=== PATIENT | female | born 1970 | race Caucasian/White ===

== ENCOUNTER 2023-04-21 14:28 | Outpatient (CLI) | payer BC, SELFPAY ==
[2023-04-21 14:06] LABS: Abs Immature Grans 0.02 10^3/uL (0.0-0.06); Absolute Basophil Count 0.07 10^3/uL (0.0-0.2); Absolute Eosinophil Count 0.07 10^3/uL (0.0-0.7); Absolute Lymphocyte Count 1.55 10^3/uL (1.2-3.4); Absolute Monocyte Count 0.37 10^3/uL (0.1-0.8); Absolute Neutrophil Count 2.22 10^3/uL (1.2-6.7); Basophils % 1.6; Eosinophils % 1.6; HCT 29.1 % (36.0-46.0); HGB 9.8 g/dL (11.2-15.7); Immature Grans % 0.5; MCH 35.4 pg (27.0-33.0); MCHC 33.7 % (32.0-36.0); MCV 105 fL (80-95); MPV 10.6 fL (8.0-11.0); Monocytes % 8.6; Neutrophils % 51.7; Nucleated RBC 1.2 % (0.0-0.3); Platelet Count 426 10^3/uL (130-400); RBC 2.77 10^6/uL (3.93-5.22); RDW-SD 51.2 fL
[2023-04-21 14:21] LABS: ALT 28 U/L (14-59); AST 12 U/L (15-37); Albumin 4.2 g/dL (3.4-5.0); Alkaline Phosphatase 66 U/L (46-116); Anion Gap 9.3 mmol/L (3-11); BUN 15 mg/dL (7-18); Bilirubin, Total 0.6 mg/dL (0.2-1.0); CO2 27.7 mmol/L (21.0-32.0); CREATININE 0.8 mg/dL (0.55-1.02); Calcium 8.6 mg/dL (8.5-10.1); Chloride 102 mmol/L (98-107); Glucose 182 mg/dL (74-106); Potassium 3.8 mmol/L (3.5-5.1); Sodium 139 mmol/L (136-145); Total Protein 7.4 g/dL (6.4-8.2)
[2023-04-21 14:25] LABS: Diff Comment RBC Morph Reviewed
[2023-04-21 14:26] LABS: Macrocytosis 2+; Polychromasia Present
== END 2023-04-21 14:29 | disposition home or self-care (01) ==
LOC: LBO 14:31
PROVIDERS: Visit Provider Nurse Practitioner Adult Health
DX: D46.9 Myelodysplastic syndrome, unspecified (principal)
CPT/HCPCS: 36415; 80053; 85025

== ENCOUNTER 2023-06-09 10:25 | Outpatient (CLI) | payer BC, SELFPAY ==
[2023-06-09 10:25] LABS: Abs Immature Grans 0.05 10^3/uL (0.0-0.06); Absolute Basophil Count 0.08 10^3/uL (0.0-0.2); Absolute Eosinophil Count 0.08 10^3/uL (0.0-0.7); Absolute Lymphocyte Count 1.68 10^3/uL (1.2-3.4); Absolute Monocyte Count 0.36 10^3/uL (0.1-0.8); Absolute Neutrophil Count 2.66 10^3/uL (1.2-6.7); Basophils % 1.6; Eosinophils % 1.6; HCT 28.5 % (36.0-46.0); HGB 9.5 g/dL (11.2-15.7); Lymphocytes % 34.2; MCH 34.7 pg (27.0-33.0); MCHC 33.3 % (32.0-36.0); MCV 104 fL (80-95); Monocytes % 7.3; Neutrophils % 54.3; Platelet Count 424 10^3/uL (130-400); RBC 2.74 10^6/uL (3.93-5.22); RDW-SD 52.9 fL; WBC 4.91 10^3/uL (4.4-10.8)
[2023-06-09 10:42] LABS: ALT 30 U/L (14-59); AST 10 U/L (15-37); Albumin 4.1 g/dL (3.4-5.0); Alkaline Phosphatase 58 U/L (46-116); Anion Gap 8.1 mmol/L (3-11); BUN 20 mg/dL (7-18); Bilirubin, Total 0.5 mg/dL (0.2-1.0); CO2 27.9 mmol/L (21.0-32.0); CREATININE 0.7 mg/dL (0.55-1.02); Chloride 102 mmol/L (98-107); Estimated GFR 102.71 (mL/min/1.73m2); Glucose 102 mg/dL (74-106); Potassium 4.4 mmol/L (3.5-5.1); Sodium 138 mmol/L (136-145); Total Protein 7.4 g/dL (6.4-8.2)
[2023-06-11 12:50] LABS: Erythropoietin 110 mIU/mL (2.6 - 18.5)
== END 2023-06-09 10:26 | disposition home or self-care (01) ==
LOC: LBO 10:28
PROVIDERS: Visit Provider Internal Medicine Hematology & Oncology
DX: D46.9 Myelodysplastic syndrome, unspecified (principal); D64.9 Anemia, unspecified
CPT/HCPCS: 36415; 80053; 82668; 85025

== ENCOUNTER 2023-08-04 03:33 | Outpatient (CLI) | payer BC, SELFPAY ==
[2023-08-04 11:55] LABS: Abs Immature Grans 0.06 10^3/uL (0.0-0.06); Absolute Basophil Count 0.08 10^3/uL (0.0-0.2); Absolute Eosinophil Count 0.05 10^3/uL (0.0-0.7); Absolute Lymphocyte Count 1.75 10^3/uL (1.2-3.4); Absolute Monocyte Count 0.45 10^3/uL (0.1-0.8); Absolute Neutrophil Count 2.62 10^3/uL (1.2-6.7); Basophils % 1.6; HGB 9.1 g/dL (11.2-15.7); Immature Grans % 1.2; Lymphocytes % 34.9; MCH 34.3 pg (27.0-33.0); MCHC 32.5 % (32.0-36.0); MCV 106 fL (80-95); MPV 11.1 fL (8.0-11.0); Neutrophils % 52.3; Nucleated RBC 0.8 % (0.0-0.3); Platelet Count 439 10^3/uL (130-400); RBC 2.65 10^6/uL (3.93-5.22); RDW 16.2 % (11.7-14.6); RDW-SD 57.6 fL; WBC 5.01 10^3/uL (4.4-10.8)
[2023-08-04 12:12] LABS: Hypochromasia 1+; Macrocytosis 1+
[2023-08-04 12:17] LABS: ALT 23 U/L (14-59); AST 11 U/L (15-37); Albumin 4.1 g/dL (3.4-5.0); Alkaline Phosphatase 56 U/L (46-116); Anion Gap 6.2 mmol/L (3-11); BUN 20 mg/dL (7-18); Bilirubin, Total 0.4 mg/dL (0.2-1.0); CO2 28.8 mmol/L (21.0-32.0); CREATININE 0.6 mg/dL (0.55-1.02); Calcium 9.3 mg/dL (8.5-10.1); Chloride 103 mmol/L (98-107); Glucose 109 mg/dL (74-106); Potassium 4.4 mmol/L (3.5-5.1); Sodium 138 mmol/L (136-145); Total Protein 7.5 g/dL (6.4-8.2)
== END 2023-08-04 03:34 | disposition home or self-care (01) ==
LOC: LBO 03:33
PROVIDERS: Visit Provider Internal Medicine Hematology & Oncology
DX: D46.9 Myelodysplastic syndrome, unspecified (principal)
CPT/HCPCS: 36415; 80053; 85025

== ENCOUNTER 2023-08-25 02:07 | Outpatient (CLI) | payer BC, SELFPAY ==
[2023-08-25 09:02] LABS: Abs Immature Grans 0.02 10^3/uL (0.0-0.06); Absolute Basophil Count 0.07 10^3/uL (0.0-0.2); Absolute Eosinophil Count 0.09 10^3/uL (0.0-0.7); Absolute Lymphocyte Count 1.23 10^3/uL (1.2-3.4); Basophils % 1.6; HCT 26.4 % (36.0-46.0); HGB 8.7 g/dL (11.2-15.7); Immature Grans % 0.5; Lymphocytes % 27.9; MCH 34.8 pg (27.0-33.0); MCV 106 fL (80-95); MPV 11.5 fL (8.0-11.0); Monocytes % 6.8; Neutrophils % 61.2; Nucleated RBC 0.5 % (0.0-0.3); Platelet Count 356 10^3/uL (130-400); RDW-SD 58.3 fL; WBC 4.41 10^3/uL (4.4-10.8)
[2023-08-25 09:15] LABS: ALT 25 U/L (14-59); AST 10 U/L (15-37); Albumin 3.9 g/dL (3.4-5.0); Alkaline Phosphatase 65 U/L (46-116); Anion Gap 7.1 mmol/L (3-11); BUN 15 mg/dL (7-18); Bilirubin, Total 0.5 mg/dL (0.2-1.0); CO2 27.9 mmol/L (21.0-32.0); CREATININE 0.7 mg/dL (0.55-1.02); Calcium 9.2 mg/dL (8.5-10.1); Chloride 103 mmol/L (98-107); Estimated GFR 102.71 (mL/min/1.73m2); Glucose 145 mg/dL (74-106); Potassium 3.9 mmol/L (3.5-5.1); Sodium 138 mmol/L (136-145); Total Protein 7.3 g/dL (6.4-8.2)
== END 2023-08-25 02:08 | disposition home or self-care (01) ==
PROVIDERS: Visit Provider Nurse Practitioner Adult Health
DX: D46.9 Myelodysplastic syndrome, unspecified (principal)
CPT/HCPCS: 36415; 80053; 85025

== ENCOUNTER 2023-09-22 18:26 | Outpatient (CLI) | payer BC, SELFPAY ==
[2023-09-22 13:06] LABS: Abs Immature Grans 0.03 10^3/uL (0.0-0.06); Absolute Basophil Count 0.08 10^3/uL (0.0-0.2); Absolute Eosinophil Count 0.09 10^3/uL (0.0-0.7); Absolute Lymphocyte Count 1.75 10^3/uL (1.2-3.4); Absolute Monocyte Count 0.36 10^3/uL (0.1-0.8); Absolute Neutrophil Count 2.26 10^3/uL (1.2-6.7); Basophils % 1.8; HCT 26.2 % (36.0-46.0); HGB 8.6 g/dL (11.2-15.7); Immature Grans % 0.7; Lymphocytes % 38.3; MCH 35.4 pg (27.0-33.0); MCHC 32.8 % (32.0-36.0); MCV 108 fL (80-95); MPV 11.2 fL (8.0-11.0); Monocytes % 7.9; Neutrophils % 49.3; Nucleated RBC 0.4 % (0.0-0.3); Platelet Count 373 10^3/uL (130-400); RBC 2.43 10^6/uL (3.93-5.22); RDW 15.9 % (11.7-14.6); RDW-SD 59.4 fL; WBC 4.57 10^3/uL (4.4-10.8)
[2023-09-22 13:26] LABS: Diff Comment Diff Reviewed; Hypochromasia 2+; Macrocytosis 2+
[2023-09-22 13:27] LABS: Poikilocytes 2+
[2023-09-22 13:35] LABS: ALT 29 U/L (14-59); AST 11 U/L (15-37); Albumin 3.9 g/dL (3.4-5.0); Alkaline Phosphatase 54 U/L (46-116); Anion Gap 7.6 mmol/L (3-11); BUN 12 mg/dL (7-18); Bilirubin, Total 0.5 mg/dL (0.2-1.0); CO2 26.4 mmol/L (21.0-32.0); CREATININE 0.7 mg/dL (0.55-1.02); Calcium 8.6 mg/dL (8.5-10.1); Chloride 105 mmol/L (98-107); Estimated GFR 102.71 (mL/min/1.73m2); Glucose 95 mg/dL (74-106); Potassium 3.9 mmol/L (3.5-5.1); Sodium 139 mmol/L (136-145)
== END 2023-09-22 18:27 | disposition home or self-care (01) ==
LOC: LBO 18:27
PROVIDERS: Visit Provider Nurse Practitioner Adult Health
DX: D46.9 Myelodysplastic syndrome, unspecified (principal)
CPT/HCPCS: 36415; 80053; 85025

== ENCOUNTER 2023-10-13 18:42 | Outpatient (CLI) | payer BC, SELFPAY ==
[2023-10-13 13:32] LABS: Abs Immature Grans 0.02 10^3/uL (0.0-0.06); Absolute Basophil Count 0.08 10^3/uL (0.0-0.2); Absolute Eosinophil Count 0.09 10^3/uL (0.0-0.7); Absolute Lymphocyte Count 1.82 10^3/uL (1.2-3.4); Absolute Monocyte Count 0.36 10^3/uL (0.1-0.8); Absolute Neutrophil Count 2.01 10^3/uL (1.2-6.7); Basophils % 1.8; Eosinophils % 2.1; HGB 9.5 g/dL (11.2-15.7); Immature Grans % 0.5; Lymphocytes % 41.6; MCH 35.7 pg (27.0-33.0); MCHC 33.9 % (32.0-36.0); MCV 105 fL (80-95); MPV 11.5 fL (8.0-11.0); Monocytes % 8.2; Neutrophils % 45.8; Nucleated RBC 0.5 % (0.0-0.3); Platelet Count 349 10^3/uL (130-400); RBC 2.66 10^6/uL (3.93-5.22); RDW 15.3 % (11.7-14.6); RDW-SD 57.1 fL; WBC 4.38 10^3/uL (4.4-10.8)
[2023-10-13 13:48] LABS: ALT 27 U/L (14-59); AST 11 U/L (15-37); Albumin 4.1 g/dL (3.4-5.0); Alkaline Phosphatase 57 U/L (46-116); Anion Gap 5.9 mmol/L (3-11); BUN 13 mg/dL (7-18); Bilirubin, Total 0.7 mg/dL (0.2-1.0); CO2 29.1 mmol/L (21.0-32.0); CREATININE 0.8 mg/dL (0.55-1.02); Calcium 9.1 mg/dL (8.5-10.1); Chloride 104 mmol/L (98-107); Glucose 145 mg/dL (74-106); Potassium 3.9 mmol/L (3.5-5.1); Sodium 139 mmol/L (136-145); Total Protein 7.4 g/dL (6.4-8.2)
== END 2023-10-13 18:43 | disposition home or self-care (01) ==
LOC: LBO 18:45
PROVIDERS: Visit Provider Internal Medicine Hematology & Oncology
DX: D46.9 Myelodysplastic syndrome, unspecified (principal)
CPT/HCPCS: 36415; 80053; 85025

== ENCOUNTER 2023-10-27 02:36 | Outpatient (CLI) | payer BC, SELFPAY ==
[2023-10-27 12:30] LABS: Abs Immature Grans 0.02 10^3/uL (0.0-0.06); Absolute Basophil Count 0.08 10^3/uL (0.0-0.2); Absolute Lymphocyte Count 1.85 10^3/uL (1.2-3.4); Absolute Monocyte Count 0.43 10^3/uL (0.1-0.8); Absolute Neutrophil Count 1.65 10^3/uL (1.2-6.7); Basophils % 1.9; Eosinophils % 2.4; HCT 29.7 % (36.0-46.0); HGB 9.8 g/dL (11.2-15.7); Immature Grans % 0.5; Lymphocytes % 44.8; MCH 35.5 pg (27.0-33.0); Monocytes % 10.4; Platelet Count 383 10^3/uL (130-400); RBC 2.76 10^6/uL (3.93-5.22); RDW 15.6 % (11.7-14.6); RDW-SD 58.7 fL; WBC 4.13 10^3/uL (4.4-10.8)
[2023-10-27 12:44] LABS: MCV 108 fL (80-95)
[2023-10-27 12:55] LABS: ALT 29 U/L (14-59); AST 9 U/L (15-37); Albumin 4.3 g/dL (3.4-5.0); Alkaline Phosphatase 55 U/L (46-116); Anion Gap 5.6 mmol/L (3-11); BUN 18 mg/dL (7-18); Bilirubin, Total 0.3 mg/dL (0.2-1.0); CO2 29.4 mmol/L (21.0-32.0); CREATININE 0.7 mg/dL (0.55-1.02); Calcium 9.3 mg/dL (8.5-10.1); Chloride 103 mmol/L (98-107); Estimated GFR 102.71 (mL/min/1.73m2); Ferritin 561 ng/mL (8-252); Glucose 109 mg/dL (74-106); Potassium 4.6 mmol/L (3.5-5.1); Sodium 138 mmol/L (136-145); Total Protein 7.6 g/dL (6.4-8.2)
[2023-10-27 12:58] LABS: Iron 135 ug/dL (50-170); Total Iron Binding Capacity 325 ug/dL (250-450); Transferrin Sat 42 % (15-50)
== END 2023-10-27 02:37 | disposition home or self-care (01) ==
PROVIDERS: Visit Provider Internal Medicine Hematology & Oncology
DX: R79.89 Other specified abnormal findings of blood chemistry (principal); D64.9 Anemia, unspecified
CPT/HCPCS: 36415; 80053; 82728; 83540; 83550; 85025

== ENCOUNTER 2023-11-24 03:58 | Outpatient (CLI) | payer BC, SELFPAY ==
[2023-11-24 12:50] LABS: Abs Immature Grans 0.08 10^3/uL (0.0-0.06); Absolute Basophil Count 0.07 10^3/uL (0.0-0.2); Absolute Eosinophil Count 0.11 10^3/uL (0.0-0.7); Absolute Monocyte Count 0.32 10^3/uL (0.1-0.8); Absolute Neutrophil Count 5.14 10^3/uL (1.2-6.7); Basophils % 1.1; Eosinophils % 1.8; HCT 28.6 % (36.0-46.0); HGB 9.6 g/dL (11.2-15.7); Immature Grans % 1.3; MCH 36.2 pg (27.0-33.0); MCHC 33.6 % (32.0-36.0); MCV 108 fL (80-95); MPV 10.9 fL (8.0-11.0); Monocytes % 5.1; Neutrophils % 82.7; Nucleated RBC 0.5 % (0.0-0.3); Platelet Count 362 10^3/uL (130-400); RBC 2.65 10^6/uL (3.93-5.22); RDW 15.1 % (11.7-14.6); RDW-SD 57.4 fL; WBC 6.22 10^3/uL (4.4-10.8)
[2023-11-24 13:20] LABS: Iron 119 ug/dL (50-170); Total Iron Binding Capacity 289 ug/dL (250-450); Transferrin Sat 41 % (15-50)
[2023-11-24 13:21] LABS: ALT 32 U/L (14-59); AST 15 U/L (15-37); Alkaline Phosphatase 60 U/L (46-116); Anion Gap 10.2 mmol/L (3-11); BUN 10 mg/dL (7-18); Bilirubin, Total 0.4 mg/dL (0.2-1.0); CO2 26.8 mmol/L (21.0-32.0); CREATININE 0.7 mg/dL (0.55-1.02); Calcium 9.4 mg/dL (8.5-10.1); Chloride 106 mmol/L (98-107); Estimated GFR 102.71 (mL/min/1.73m2); Ferritin 554 ng/mL (8-252); Glucose 121 mg/dL (74-106); Sodium 143 mmol/L (136-145); Total Protein 7.2 g/dL (6.4-8.2)
== END 2023-11-24 03:59 | disposition home or self-care (01) ==
LOC: LBO 03:58
PROVIDERS: Visit Provider Internal Medicine Hematology & Oncology
DX: D46.9 Myelodysplastic syndrome, unspecified (principal); D64.9 Anemia, unspecified; R79.89 Other specified abnormal findings of blood chemistry
CPT/HCPCS: 36415; 80053; 82728; 83540; 83550; 85025

== ENCOUNTER 2023-12-08 03:22 | Outpatient (CLI) | payer BC, SELFPAY ==
[2023-12-08 12:43] LABS: Abs Immature Grans 0.04 10^3/uL (0.0-0.06); Absolute Basophil Count 0.04 10^3/uL (0.0-0.2); Absolute Eosinophil Count 0.08 10^3/uL (0.0-0.7); Absolute Lymphocyte Count 1.69 10^3/uL (1.2-3.4); Absolute Monocyte Count 0.39 10^3/uL (0.1-0.8); Absolute Neutrophil Count 1.51 10^3/uL (1.2-6.7); Basophils % 1.1; Eosinophils % 2.1; HCT 28.6 % (36.0-46.0); HGB 9.6 g/dL (11.2-15.7); Immature Grans % 1.1; Lymphocytes % 45.1; MCH 35.6 pg (27.0-33.0); MCHC 33.6 % (32.0-36.0); MCV 106 fL (80-95); MPV 11.5 fL (8.0-11.0); Monocytes % 10.4; Neutrophils % 40.2; Nucleated RBC 0.8 % (0.0-0.3); Platelet Count 433 10^3/uL (130-400); RDW 15.2 % (11.7-14.6); RDW-SD 55.6 fL; WBC 3.75 10^3/uL (4.4-10.8)
[2023-12-08 13:10] LABS: ALT 46 U/L (14-59); AST 15 U/L (15-37); Albumin 4.2 g/dL (3.4-5.0); Alkaline Phosphatase 58 U/L (46-116); Anion Gap 10.2 mmol/L (3-11); BUN 13 mg/dL (7-18); Bilirubin, Total 0.6 mg/dL (0.2-1.0); CO2 27.8 mmol/L (21.0-32.0); CREATININE 0.7 mg/dL (0.55-1.02); Calcium 9.2 mg/dL (8.5-10.1); Chloride 103 mmol/L (98-107); Estimated GFR 102.71 (mL/min/1.73m2); Ferritin 654 ng/mL (8-252); Glucose 99 mg/dL (74-106); Potassium 4.2 mmol/L (3.5-5.1); Sodium 141 mmol/L (136-145); Total Protein 7.6 g/dL (6.4-8.2)
[2023-12-08 14:02] LABS: Iron 191 ug/dL (50-170); Total Iron Binding Capacity 331 ug/dL (250-450); Transferrin Sat 58 % (15-50)
== END 2023-12-08 03:23 | disposition home or self-care (01) ==
LOC: LBO 03:23
PROVIDERS: Visit Provider Internal Medicine Hematology & Oncology
DX: D64.9 Anemia, unspecified (principal); D46.9 Myelodysplastic syndrome, unspecified; R79.89 Other specified abnormal findings of blood chemistry
CPT/HCPCS: 36415; 80053; 82728; 83540; 83550; 85025

== ENCOUNTER 2024-02-09 05:44 | Outpatient (CLI) | payer BC, SELFPAY ==
[2024-02-09 11:55] LABS: Abs Immature Grans 0.02 10^3/uL (0.0-0.06); Absolute Basophil Count 0.05 10^3/uL (0.0-0.2); Absolute Eosinophil Count 0.09 10^3/uL (0.0-0.7); Absolute Lymphocyte Count 0.81 10^3/uL (1.2-3.4); Absolute Monocyte Count 0.39 10^3/uL (0.1-0.8); Absolute Neutrophil Count 2.79 10^3/uL (1.2-6.7); Basophils % 1.2 %; Eosinophils % 2.2 %; HCT 28.7 % (36.0-46.0); HGB 9.5 g/dL (11.2-15.7); Immature Grans % 0.5 %; Lymphocytes % 19.5 %; MCH 36.1 pg (27.0-33.0); MCHC 33.1 % (32.0-36.0); MPV 11.1 fL (8.0-11.0); Monocytes % 9.4 %; Neutrophils % 67.2 %; Platelet Count 351 10^3/uL (130-400); RBC 2.63 10^6/uL (3.93-5.22); RDW 14.8 % (11.7-14.6); RDW-SD 56.8 fL; WBC 4.15 10^3/uL (4.4-10.8)
[2024-02-09 11:56] LABS: MCV 109 fL (80-95)
[2024-02-09 12:24] LABS: ALT 29 U/L (14-59); AST 11 U/L (15-37); Albumin 4.3 g/dL (3.4-5.0); Alkaline Phosphatase 64 U/L (46-116); Anion Gap 9.2 mmol/L (3-11); BUN 19 mg/dL (7-18); Bilirubin, Total 0.6 mg/dL (0.2-1.0); CO2 26.8 mmol/L (21.0-32.0); CREATININE 0.7 mg/dL (0.55-1.02); Calcium 8.6 mg/dL (8.5-10.1); Chloride 103 mmol/L (98-107); Estimated GFR 102.07 (mL/min/1.73m2); Ferritin 586 ng/mL (8-252); Glucose 126 mg/dL (74-106); Potassium 4.1 mmol/L (3.5-5.1); Sodium 139 mmol/L (136-145); Total Protein 7.4 g/dL (6.4-8.2)
[2024-02-09 12:26] LABS: Iron 128 ug/dL (50-170); Total Iron Binding Capacity 300 ug/dL (250-450); Transferrin Sat 43 % (15-50)
== END 2024-02-09 05:45 | disposition home or self-care (01) ==
LOC: LBO 05:45
PROVIDERS: Visit Provider Internal Medicine Hematology & Oncology
DX: R79.89 Other specified abnormal findings of blood chemistry (principal); D46.9 Myelodysplastic syndrome, unspecified
CPT/HCPCS: 36415; 80053; 82728; 83540; 83550; 85025

== ENCOUNTER 2024-03-08 14:57 | Outpatient (CLI) | payer BC, SELFPAY ==
[2024-03-08 12:22] LABS: Abs Immature Grans 0.01 10^3/uL (0.0-0.06); Absolute Basophil Count 0.05 10^3/uL (0.0-0.2); Absolute Eosinophil Count 0.09 10^3/uL (0.0-0.7); Absolute Lymphocyte Count 1.45 10^3/uL (1.2-3.4); Absolute Monocyte Count 0.26 10^3/uL (0.1-0.8); Absolute Neutrophil Count 1.16 10^3/uL (1.2-6.7); Basophils % 1.7 %; HCT 27.1 % (36.0-46.0); HGB 9.1 g/dL (11.2-15.7); Immature Grans % 0.3 %; MCH 36.1 pg (27.0-33.0); MCHC 33.6 % (32.0-36.0); MCV 108 fL (80-95); MPV 11.2 fL (8.0-11.0); Monocytes % 8.6 %; Neutrophils % 38.4 %; Nucleated RBC 0.7 % (0.0-0.3); Platelet Count 330 10^3/uL (130-400); RBC 2.52 10^6/uL (3.93-5.22); RDW 14.9 % (11.7-14.6); RDW-SD 56.3 fL; WBC 3.02 10^3/uL (4.4-10.8)
[2024-03-08 12:50] LABS: ALT 30 U/L (14-59); AST 10 U/L (15-37); Albumin 4.1 g/dL (3.4-5.0); Alkaline Phosphatase 57 U/L (46-116); Anion Gap 8.4 mmol/L (3-11); BUN 15 mg/dL (7-18); Bilirubin, Total 0.5 mg/dL (0.2-1.0); CO2 27.6 mmol/L (21.0-32.0); CREATININE 0.6 mg/dL (0.55-1.02); Calcium 8.8 mg/dL (8.5-10.1); Chloride 105 mmol/L (98-107); Estimated GFR 105.94 (mL/min/1.73m2); Ferritin 489 ng/mL (8-252); Glucose 100 mg/dL (74-106); Potassium 4.3 mmol/L (3.5-5.1); Sodium 141 mmol/L (136-145); Total Protein 7.2 g/dL (6.4-8.2)
[2024-03-08 13:38] LABS: Iron 148 ug/dL (50-170); Total Iron Binding Capacity 281 ug/dL (250-450); Transferrin Sat 53 % (15-50)
== END 2024-03-08 14:58 | disposition home or self-care (01) ==
LOC: LBO 15:01
PROVIDERS: Visit Provider Internal Medicine Hematology & Oncology
DX: R79.89 Other specified abnormal findings of blood chemistry (principal); D64.9 Anemia, unspecified; D53.9 Nutritional anemia, unspecified
CPT/HCPCS: 36415; 80053; 82728; 83540; 83550; 85025

== ENCOUNTER 2024-04-05 13:07 | Outpatient (CLI) | payer BC, SELFPAY ==
[2024-04-05 12:59] LABS: Abs Immature Grans 0.01 10^3/uL (0.0-0.06); Absolute Basophil Count 0.05 10^3/uL (0.0-0.2); Absolute Eosinophil Count 0.04 10^3/uL (0.0-0.7); Absolute Lymphocyte Count 1.23 10^3/uL (1.2-3.4); Absolute Monocyte Count 0.27 10^3/uL (0.1-0.8); Absolute Neutrophil Count 1.36 10^3/uL (1.2-6.7); Basophils % 1.7 %; Eosinophils % 1.4 %; HCT 27.6 % (36.0-46.0); HGB 9.1 g/dL (11.2-15.7); Immature Grans % 0.3 %; Lymphocytes % 41.6 %; MCH 35.7 pg (27.0-33.0); MCV 108 fL (80-95); MPV 11.9 fL (8.0-11.0); Monocytes % 9.1 %; Neutrophils % 45.9 %; Platelet Count 365 10^3/uL (130-400); RBC 2.55 10^6/uL (3.93-5.22); RDW 15.2 % (11.7-14.6); RDW-SD 57.1 fL; WBC 2.96 10^3/uL (4.4-10.8)
[2024-04-05 13:42] LABS: Iron 273 ug/dL (50-170); Total Iron Binding Capacity 313 ug/dL (250-450); Transferrin Sat 87 % (15-50)
[2024-04-05 13:54] LABS: ALT 26 U/L (14-59); AST 11 U/L (15-37); Albumin 4.3 g/dL (3.4-5.0); Alkaline Phosphatase 61 U/L (46-116); Anion Gap 8.9 mmol/L (3-11); BUN 14 mg/dL (7-18); Bilirubin, Total 0.87 mg/dL (0.2-1.0); CO2 28.1 mmol/L (21.0-32.0); CREATININE 0.6 mg/dL (0.55-1.02); Calcium 9.2 mg/dL (8.5-10.1); Chloride 103 mmol/L (98-107); Estimated GFR 105.94 (mL/min/1.73m2); Ferritin 576 ng/mL (8-252); Glucose 106 mg/dL (74-106); Sodium 140 mmol/L (136-145); Total Protein 7.5 g/dL (6.4-8.2)
== END 2024-04-05 13:08 | disposition home or self-care (01) ==
LOC: LBO 13:12
PROVIDERS: Visit Provider Internal Medicine Hematology & Oncology
DX: D46.9 Myelodysplastic syndrome, unspecified (principal); D53.9 Nutritional anemia, unspecified; R79.89 Other specified abnormal findings of blood chemistry; D64.9 Anemia, unspecified
CPT/HCPCS: 36415; 80053; 82728; 83540; 83550; 85025

== ENCOUNTER 2024-04-19 00:52 | Outpatient (RCR) | payer BC, SELFPAY ==
[2024-04-19] MEDS: Normal Saline Flush 10 ML SYR IVP (08:00)
[2024-04-19 08:15] LABS: Abs Immature Grans 0.02 10^3/uL (0.0-0.06); Absolute Basophil Count 0.05 10^3/uL (0.0-0.2); Absolute Eosinophil Count 0.06 10^3/uL (0.0-0.7); Absolute Lymphocyte Count 1.11 10^3/uL (1.2-3.4); Absolute Monocyte Count 0.28 10^3/uL (0.1-0.8); Absolute Neutrophil Count 1.46 10^3/uL (1.2-6.7); Basophils % 1.7 %; HGB 7.7 g/dL (11.2-15.7); Immature Grans % 0.7 %; Lymphocytes % 37.2 %; MCH 36.2 pg (27.0-33.0); MCHC 33.5 % (32.0-36.0); MCV 108 fL (80-95); MPV 11.4 fL (8.0-11.0); Monocytes % 9.4 %; Nucleated RBC 1.3 % (0.0-0.3); Platelet Count 310 10^3/uL (130-400); RBC 2.13 10^6/uL (3.93-5.22); RDW 15.5 % (11.7-14.6); RDW-SD 57.6 fL; WBC 2.98 10^3/uL (4.4-10.8)
[2024-04-19 09:03] LABS: Diff Comment RBC Morph Reviewed; Macrocytosis 2+
[2024-04-19 09:04] LABS: Basophilic Stippling Present; Hypochromasia 1+
[2024-04-19 09:40] VITALS: BP 111/70; PULSE 63; RESP 16; TEMP 36.7; O2SAT 98
[2024-04-19 09:55] VITALS: BP 118/74; PULSE 68; RESP 16; TEMP 36.6; O2SAT 96
[2024-04-19 10:10] VITALS: BP 116/74; PULSE 63; RESP 16; TEMP 36.7; O2SAT 98
[2024-04-19 10:40] VITALS: BP 128/74; PULSE 61; RESP 16; TEMP 36.8; O2SAT 100
[2024-04-19 11:25] VITALS: BP 126/72; PULSE 64; RESP 16; TEMP 36.6; O2SAT 100
== END 2024-05-10 23:59 | disposition home or self-care (01) ==
LOC: INF 00:52
PROVIDERS: Visit Provider Nurse Practitioner Adult Health
DX: D46.9 Myelodysplastic syndrome, unspecified (principal)
CPT/HCPCS: 36415; 36430; 86850; 86900; 86901; 86920; 85025; P9016

== ENCOUNTER 2024-07-26 08:57 | Outpatient (CLI) | payer BC, SELFPAY ==
[2024-07-26 09:04] LABS: Abs Immature Grans 0.07 10^3/uL (0.0-0.06); Absolute Basophil Count 0.06 10^3/uL (0.0-0.2); Absolute Eosinophil Count 0.11 10^3/uL (0.0-0.7); Absolute Lymphocyte Count 1.28 10^3/uL (1.2-3.4); Absolute Monocyte Count 0.33 10^3/uL (0.1-0.8); Basophils % 1.6 %; Eosinophils % 2.9 %; HCT 23.1 % (36.0-46.0); HGB 7.4 g/dL (11.2-15.7); Immature Grans % 1.8 %; Lymphocytes % 33.2 %; MCH 36.3 pg (27.0-33.0); MCV 113 fL (80-95); Monocytes % 8.6 %; Neutrophils % 51.9 %; Platelet Count 374 10^3/uL (130-400); RBC 2.04 10^6/uL (3.93-5.22); RDW-SD 67.2 fL; WBC 3.85 10^3/uL (4.4-10.8)
[2024-07-26 09:22] LABS: ALT 28 U/L (14-59); AST 12 U/L (15-37); Albumin 3.9 g/dL (3.4-5.0); Alkaline Phosphatase 52 U/L (46-116); Anion Gap 10.7 mmol/L (3-11); BUN 16 mg/dL (7-18); Basophilic Stippling Present; Bilirubin, Total 0.43 mg/dL (0.2-1.0); CO2 24.3 mmol/L (21.0-32.0); CREATININE 0.7 mg/dL (0.55-1.02); Calcium 8.7 mg/dL (8.5-10.1); Chloride 107 mmol/L (98-107); Diff Comment RBC Morph Reviewed; Estimated GFR 102.07 (mL/min/1.73m2); Glucose 159 mg/dL (74-106); Macrocytosis 2+; Polychromasia Present; Sodium 142 mmol/L (136-145)
[2024-07-26 09:23] LABS: Poikilocytes 2+
== END 2024-07-26 08:58 | disposition home or self-care (01) ==
LOC: LBO 08:58
PROVIDERS: Visit Provider Internal Medicine Hematology & Oncology
DX: D46.9 Myelodysplastic syndrome, unspecified (principal); D53.9 Nutritional anemia, unspecified
CPT/HCPCS: 36415; 80053; 85025

== ENCOUNTER 2024-07-26 11:16 | Outpatient (RCR) | payer BC, SELFPAY ==
[2024-07-26 12:37] VITALS: BP 114/72; PULSE 66; RESP 16; TEMP 36.8; O2SAT 98
[2024-07-26 12:52] VITALS: BP 128/75; PULSE 78; RESP 18; TEMP 36.7; O2SAT 98
[2024-07-26 13:22] VITALS: BP 108/72; PULSE 68; RESP 17; TEMP 36.7; O2SAT 96
[2024-07-26 13:49] VITALS: BP 119/76; PULSE 69; RESP 16; TEMP 36.3; O2SAT 95
[2024-07-26] MEDS: Normal Saline Flush 10 ML SYR IVP (14:58)
== END 2024-08-10 23:59 | disposition home or self-care (01) ==
LOC: INF 11:16
PROVIDERS: Visit Provider Internal Medicine Hematology & Oncology
DX: D63.0 Anemia in neoplastic disease (principal); D46.9 Myelodysplastic syndrome, unspecified; R79.89 Other specified abnormal findings of blood chemistry; D53.9 Nutritional anemia, unspecified
CPT/HCPCS: 36430; 86850; 86900; 86901; 86920; P9016

== ENCOUNTER 2024-09-06 11:14 | Outpatient (CLI) | payer BC, SELFPAY ==
[2024-09-06 10:09] LABS: Abs Immature Grans 0.09 10^3/uL (0.0-0.06); Absolute Basophil Count 0.07 10^3/uL (0.0-0.2); Absolute Eosinophil Count 0.09 10^3/uL (0.0-0.7); Absolute Lymphocyte Count 1.63 10^3/uL (1.2-3.4); Absolute Monocyte Count 0.33 10^3/uL (0.1-0.8); Absolute Neutrophil Count 2.11 10^3/uL (1.2-6.7); Basophils % 1.6 %; Eosinophils % 2.1 %; HCT 26.1 % (36.0-46.0); HGB 8.6 g/dL (11.2-15.7); Immature Grans % 2.1 %; Lymphocytes % 37.7 %; MCH 35.4 pg (27.0-33.0); MCV 107 fL (80-95); MPV 10.7 fL (8.0-11.0); Monocytes % 7.6 %; Neutrophils % 48.9 %; Nucleated RBC 0.9 % (0.0-0.3); Platelet Count 377 10^3/uL (130-400); RBC 2.43 10^6/uL (3.93-5.22); RDW-SD 68.8 fL; WBC 4.32 10^3/uL (4.4-10.8)
[2024-09-06 10:25] LABS: ALT 31 U/L (14-59); AST 14 U/L (15-37); Albumin 4.1 g/dL (3.4-5.0); Alkaline Phosphatase 67 U/L (46-116); Anion Gap 5.3 mmol/L (3-11); BUN 16 mg/dL (7-18); Bilirubin, Total 0.52 mg/dL (0.2-1.0); CO2 28.7 mmol/L (21.0-32.0); CREATININE 0.7 mg/dL (0.55-1.02); Calcium 8.9 mg/dL (8.5-10.1); Chloride 103 mmol/L (98-107); Estimated GFR 102.07 (mL/min/1.73m2); Glucose 134 mg/dL (74-106); Potassium 4.5 mmol/L (3.5-5.1); Sodium 137 mmol/L (136-145); Total Protein 7.3 g/dL (6.4-8.2)
[2024-09-06 10:50] LABS: Macrocytosis 1+
== END 2024-09-06 11:15 | disposition home or self-care (01) ==
LOC: LBO 11:16
PROVIDERS: Visit Provider Nurse Practitioner Adult Health
DX: D53.9 Nutritional anemia, unspecified (principal); D46.9 Myelodysplastic syndrome, unspecified
CPT/HCPCS: 36415; 80053; 85025

== ENCOUNTER 2024-09-20 10:57 | Outpatient (CLI) | payer BC, SELFPAY ==
[2024-09-20 10:05] LABS: Abs Immature Grans 0.03 10^3/uL (0.0-0.06); Absolute Basophil Count 0.04 10^3/uL (0.0-0.2); Absolute Eosinophil Count 0.06 10^3/uL (0.0-0.7); Absolute Neutrophil Count 2.87 10^3/uL (1.2-6.7); Basophils % 0.9 %; Eosinophils % 1.3 %; HCT 28.1 % (36.0-46.0); HGB 9.2 g/dL (11.2-15.7); Immature Grans % 0.7 %; Lymphocytes % 28.3 %; MCH 35.1 pg (27.0-33.0); MCHC 32.7 % (32.0-36.0); MPV 11.2 fL (8.0-11.0); Monocytes % 6.5 %; Neutrophils % 62.3 %; Platelet Count 326 10^3/uL (130-400); RBC 2.62 10^6/uL (3.93-5.22); RDW 18.6 % (11.7-14.6); RDW-SD 70.8 fL
[2024-09-20 10:07] LABS: MCV 107 fL (80-95)
[2024-09-20 10:23] LABS: ALT 29 U/L (14-59); AST 14 U/L (15-37); Albumin 4.3 g/dL (3.4-5.0); Alkaline Phosphatase 65 U/L (46-116); Anion Gap 9.1 mmol/L (3-11); BUN 20 mg/dL (7-18); Bilirubin, Total 1.01 mg/dL (0.2-1.0); CO2 25.9 mmol/L (21.0-32.0); CREATININE 0.7 mg/dL (0.55-1.02); Calcium 8.8 mg/dL (8.5-10.1); Chloride 106 mmol/L (98-107); Estimated GFR 102.07 (mL/min/1.73m2); Glucose 124 mg/dL (74-106); Potassium 4.2 mmol/L (3.5-5.1); Sodium 141 mmol/L (136-145); Total Protein 7.7 g/dL (6.4-8.2)
== END 2024-09-20 10:58 | disposition home or self-care (01) ==
LOC: LBO 10:57
PROVIDERS: Visit Provider Nurse Practitioner Adult Health
DX: D46.9 Myelodysplastic syndrome, unspecified (principal); D53.9 Nutritional anemia, unspecified
CPT/HCPCS: 36415; 80053; 85025

== ENCOUNTER 2024-10-18 03:50 | Outpatient (RCR) | payer OTHER, SELFPAY ==
[2024-10-18 08:25] LABS: Abs Immature Grans 0.04 10^3/uL (0.0-0.06); Absolute Basophil Count 0.07 10^3/uL (0.0-0.2); Absolute Eosinophil Count 0.07 10^3/uL (0.0-0.7); Absolute Lymphocyte Count 1.12 10^3/uL (1.2-3.4); Absolute Monocyte Count 0.33 10^3/uL (0.1-0.8); Absolute Neutrophil Count 2.44 10^3/uL (1.2-6.7); Basophils % 1.7 %; Eosinophils % 1.7 %; HCT 24.1 % (36.0-46.0); HGB 7.9 g/dL (11.2-15.7); Lymphocytes % 27.5 %; MCH 35.6 pg (27.0-33.0); MCHC 32.8 % (32.0-36.0); MCV 109 fL (80-95); MPV 11.5 fL (8.0-11.0); Monocytes % 8.1 %; Platelet Count 369 10^3/uL (130-400); RBC 2.22 10^6/uL (3.93-5.22); RDW 19.8 % (11.7-14.6); RDW-SD 72.8 fL; WBC 4.07 10^3/uL (4.4-10.8)
[2024-10-18 09:26] VITALS: BP 127/83; PULSE 72; RESP 18; TEMP 36.8; O2SAT 98
[2024-10-18 09:41] VITALS: BP 143/87; PULSE 71; RESP 19; TEMP 36.7; O2SAT 97
[2024-10-18] MEDS: Normal Saline Flush 10 ML SYR IVP (09:52)
[2024-10-18 10:02] VITALS: BP 134/81; PULSE 70; RESP 18; TEMP 36.9; O2SAT 99
[2024-10-18 10:11] VITALS: PULSE 71; RESP 18; TEMP 36.9; O2SAT 99
[2024-10-18 10:35] VITALS: BP 151/84; PULSE 68; RESP 18; TEMP 36.8; O2SAT 98
[2024-10-18 11:11] VITALS: BP 139/78; PULSE 64; RESP 18; TEMP 36.4; O2SAT 98
== END 2024-11-10 23:59 | disposition home or self-care (01) ==
LOC: INF 03:50
PROVIDERS: PCP Neuromusculoskeletal Medicine & OMM; Visit Provider Nurse Practitioner Adult Health
DX: D46.9 Myelodysplastic syndrome, unspecified (principal); D53.9 Nutritional anemia, unspecified
CPT/HCPCS: 36430; 86850; 86900; 86901; 86920; 85025; P9016